=== PATIENT | female | born 1980 ===

== ENCOUNTER 2017-01-02 07:22 | Emergency (ER) | payer BC ==
[2017-01-02 07:40] VITALS: BP 108/59
--- NOTE | 2017-01-02 08:49 | UC ---
Throat Pain/Nasal David HPI - HPI Summary HPI Summary: 36 yo female with sore throat x 2 weeks got better now with swollen neck glands some fatigue no hx mono - History of Current Complaint Chief Complaint: UCGeneralIllness Stated Complaint: SORE THROAT Time Seen by Provider: 01/02/17 08:14 Hx Obtained From: Patient Hx Last Menstrual Period: 1 week Onset/Duration: Sudden Onset, Lasting Weeks Severity: Mild Pain Intensity: 3 Pain Scale Used: 0-10 Numeric - Allergies/Home Medications Allergies/Adverse Reactions: Allergies Allergy/AdvReac Type Severity Reaction Status Date / Time No Known Allergies Allergy Verified 01/02/17 07:33 Home Medications: Home Medications NK [No Home Medications Reported] 01/02/17 [History Confirmed 01/02/17] PMH/Surg Hx/FS Hx/Imm Hx Previously Healthy: Yes Respiratory History Of: Denies: Asthma - Surgical History Surgical History: Yes Surgery Procedure, Year, and Place: 2010 LAPAROSCOPIC SURGERY FOR ENDOMETRIOSIS - Family History Known Family History: Positive: Hypertension - Social History Alcohol Use: Occasionally Substance Use Type: None Smoking Status (MU): Never Smoked Tobacco Have You Smoked in the Last Year: No - Immunization History Most Recent Influenza Vaccination: Most Recent Tetanus Shot: 11/27/13 Most Recent Pneumonia Vaccination: never Review of Systems Constitutional: Fatigue Skin: Negative Eyes: Negative ENT: Negative - sore throat now resolved Respiratory: Negative Cardiovascular: Negative Gastrointestinal: Negative Genitourinary: Negative Motor: Negative Neurovascular: Negative Musculoskeletal: Myalgia Neurological: Negative Psychological: Negative All Other Systems Reviewed And Are Negative: Yes Physical Exam Triage Information Reviewed: Yes Appearance: Well-Appearing, No Pain Distress, Well-Nourished Vital Signs: Initial Vital Signs Temp 97.8 F 01/02/17 07:34 Pulse 61 01/02/17 07:34 Resp 16 01/02/17 07:34 BP 108/59 01/02/17 07:34 Pulse Ox 100 01/02/17 07:34 Vital Signs Reviewed: Yes Eyes: Positive: Conjunctiva Clear ENT: Positive: Hearing grossly normal, Pharyngeal erythema, TMs normal. Negative: Nasal congestion, Nasal drainage, Trismus, Muffled/hoarse voice Neck: Positive: Supple, Nontender, Enlarged Nodes @ - ant cerv Respiratory: Positive: Lungs clear, Normal breath sounds, No respiratory distress, No accessory muscle use Cardiovascular: Positive: RRR, No Murmur Musculoskeletal: Positive: Strength Intact, ROM Intact Neurological Exam: Normal Neurological: Positive: Alert Psychological Exam: Normal Skin Exam: Normal Throat Pain/Nasal Course/Dx - Differential Dx/Diagnosis Provider Diagnoses: adenopathy- suspect viral syndrome Discharge - Discharge Plan Condition: Stable Disposition: HOME Referrals: Kenna Lin MD [Primary Care Provider] -
[2017-01-02 12:03] LABS: EBV Response YES
[2017-01-02 12:08] LABS: Hematocrit 37 % (35-47); Hemoglobin 12.2 g/dl (12.0-16.0); Mean Corpuscular HGB Conc 33 g/dl (31-36); Mean Corpuscular Hemoglobin 29 pg (27-31); Mean Corpuscular Volume 89 fL (80-97); Mean Platelet Volume 10 um3 (7.4-10.4); Red Blood Count 4.14 10^6/ul (4.0-5.4); Red Cell Distribution Width 13 % (10.5-15); White Blood Count 9.4 10^3/ul (3.5-10.8)
[2017-01-02 12:13] LABS: Manual Entry Verification HAN0055; Mono Internal Control QC Line Present
[2017-01-04 11:42] LABS: EBV Capsid Ag IgG Ab Negative (Negative); EBV Capsid Ag IgM Ab Positive (Negative)
== END 2017-01-02 09:14 | disposition home or self-care (01) ==
LOC: UCEAST 07:22
DX: R59.9 Enlarged lymph nodes, unspecified (principal)
CPT/HCPCS: 36415; 85025; 86308; 86664; 86665; 87651; 99212; G0463

== ENCOUNTER 2017-04-23 08:10 | Emergency (ER) | payer BC ==
[2017-04-23 08:22] VITALS: BP 119/62
--- NOTE | 2017-04-23 08:49 | UC ---
Skin Complaint HPI - HPI Summary HPI Summary: exposed to poison ofelia 1 week ago on left wrist, spreading left ear and left side of abdomen--has been using zanfel and clobetasol with some relief - History of Current Complaint Chief Complaint: UCRash Time Seen by Provider: 04/23/17 08:46 Stated Complaint: RASH Hx Obtained From: Patient Hx Last Menstrual Period: may ? ?: No Onset/Duration: Sudden Onset, Lasting Days - 7, Still Present Skin Exposure Onset/Duration: Weeks Ago - 1 Timing: Constant Onset Severity: Mild Current Severity: Moderate Location: Diffuse Character: Swelling, Redness Aggravating: Nothing Alleviating: Treatment [employer]: - zanfel and clodetasol Associated Signs & Symptoms: Positive: Negative Related History: Possible Reaction to: Environmental Exposure - Allergy/Home Medications Allergies/Adverse Reactions: Allergies Allergy/AdvReac Type Severity Reaction Status Date / Time No Known Allergies Allergy Verified 04/23/17 08:21 Review of Systems Constitutional: Negative Skin: Rash Eyes: Negative ENT: Negative Respiratory: Negative Cardiovascular: Negative Gastrointestinal: Negative Genitourinary: Negative Motor: Negative Neurovascular: Negative Musculoskeletal: Negative Neurological: Negative Psychological: Negative All Other Systems Reviewed And Are Negative: Yes PMH/Surg Hx/FS Hx/Imm Hx Previously Healthy: Yes - Surgical History Surgical History: Yes Surgery Procedure, Year, and Place: 2010 LAPAROSCOPIC SURGERY FOR ENDOMETRIOSIS - Family History Known Family History: Positive: Hypertension - Social History Occupation: Employed Full-time Lives: With Family Alcohol Use: Occasionally Substance Use Type: None Smoking Status (MU): Never Smoked Tobacco Have You Smoked in the Last Year: No - Immunization History Most Recent Influenza Vaccination: Most Recent Tetanus Shot: 11/27/13 Most Recent Pneumonia Vaccination: never Physical Exam Triage Information Reviewed: Yes Appearance: Well-Appearing, No Pain Distress, Well-Nourished Vital Signs: Initial Vital Signs Temp 98.3 F 04/23/17 08:16 Pulse 71 04/23/17 08:16 Resp 16 04/23/17 08:16 BP 119/62 04/23/17 08:16 Pulse Ox 100 04/23/17 08:16 Vital Signs Reviewed: Yes Eye Exam: Normal Eyes: Positive: Conjunctiva Clear ENT Exam: Normal ENT: Positive: Normal ENT inspection, Hearing grossly normal. Negative: Nasal congestion, Nasal drainage, Trismus, Muffled/hoarse voice Dental Exam: Normal Neck exam: Normal Neck: Positive: Supple, Nontender Respiratory Exam: Normal Respiratory: Positive: Chest non-tender, No respiratory distress, No accessory muscle use Cardiovascular Exam: Normal Cardiovascular: Positive: RRR, Pulses Normal, Brisk Capillary Refill Musculoskeletal Exam: Normal Musculoskeletal: Positive: Strength Intact, ROM Intact, No Edema Neurological Exam: Normal Neurological: Positive: Alert, Muscle Tone Normal Psychological Exam: Normal Skin Exam: Other Skin: Positive: rashes - poison ofelia exposure as described Course/Dx - Course Course Of Treatment: 14 day taper of prednisone, ok to use zanfel, follow with pcp - Differential Diagnoses - Skin Complaint Differential Diagnoses: Impetigo, Local Allergic Reaction, Poison Ofelia - Diagnoses Provider Diagnoses: Poison Ofelia Exposure Discharge - Discharge Plan Condition: Stable Disposition: HOME Prescriptions: predniSONE TAB* [Deltasone TAB*] 10 mg PO DAILY #54 tab Patient Education Materials: Prednisone (By mouth), Poison Ofelia (ED) Referrals: Kenna Lin MD [Primary Care Provider] - If Needed
== END 2017-04-23 09:24 | disposition home or self-care (01) ==
LOC: UCEAST 08:10
DX: L23.7 Allergic contact dermatitis due to plants, except food (principal)
CPT/HCPCS: 99212; G0463